=== PATIENT | male | born 2000 | race Caucasian/White ===

== ENCOUNTER 2020-03-30 21:54 | Emergency (ER) | payer BC, OTHER ==
[2020-03-30] MEDS ORDERED: Diphtheria,Pertussis(Acell),Tetanus Vaccine 0.5 ML SDV IM ONE (22:05)
[2020-03-30] MEDS ORDERED: Lidocaine 1% 30 ML SDV INJECT ONE (22:06)
[2020-03-30] MEDS ORDERED: Bacitracin Oint 1 GM U/D Packet TOP ONE (22:07)
[2020-03-30] MEDS ORDERED: Cephalexin 500 MG Cap PO ONE (22:30)
--- NOTE | 2020-03-30 23:01 | EDM.PDOC ---
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 Unsure last tetnus. - Related Data Allergies Allergy/AdvReac Type Severity Reaction Status Date / Time No Known Allergies Allergy Verified 03/30/20 22:12 Home Meds: Home Meds . [No Known Home Meds] 03/30/20 [History] Past Medical History - Past Health History Medical/Surgical History: Denies Medical/Surgical History Social & Family History - Tobacco Use Smoking Status *Q: Never Smoker - Alcohol Use Days Per Week of Alcohol Use: 3 Number of Drinks Per Day: 3 Total Drinks Per Week: 9 - Recreational Drug Use Recreational Drug Use: No Review of Systems - Review of Systems Review Of Systems: Comprehensive ROS is negative, except as noted in HPI. ED EXAM, GENERAL - Physical Exam Exam: See Below Exam Limited By: No Limitations General Appearance: Alert, Anxious Eye Exam: Bilateral Eye: EOMI Ears: Normal External Exam, Normal Canal Nose: Normal Inspection Throat/Mouth: Normal Inspection Head: Atraumatic, Normocephalic Neck: Normal Inspection Respiratory/Chest: No Respiratory Distress Cardiovascular: Normal Peripheral Pulses Extremities: Other ( swelling left distal index nail bed intact no subungal hematoma). No: Normal Inspection, Normal Range of Motion Neurological: Alert, Oriented, Normal Cognition, Normal Gait Psychiatric: Normal Affect, Normal Mood Skin Exam: Warm, Ecchymosis, Wound/Incision (distal left index palm 1cm ) ED TRAUMA EXTREMITY PROCEDURES - Laceration/Wound Repair Left Distal Digit - 2nd (Index) Appearance: Superficial Distal NVT: Neuro & Vascular Intact Anesthetic Type: Local Local Anesthesia - Lidocaine (Xylocaine): 1% Plain Local Anesthetic Volume: 2cc Skin Prep: Chlorhexidine (Hibiciens), Saline Closed With: Sutures Suture Size: 4-0 # of Sutures: 2 Sterile Dressing Applied: Other (splint lieft index) Tetanus Status Addressed: Yes Complications: No Course - Vital Signs Last Recorded V/S: Last Vital Signs Temp 95.5 F L 03/30/20 22:06 Pulse 95 03/30/20 22:06 Resp 16 03/30/20 22:06 BP 163/93 H 03/30/20 22:06 Pulse Ox 98 03/30/20 22:06 - Orders/Labs/Meds Orders: Active Orders 24 hr Category Date Time Status Vaccines to be Administered [RC] PER UNIT ROUTINE Care 03/30/20 22:06 Active Fingers Multiple Lt [CR] Urgent Exams 03/30/20 22:07 Taken Meds: Medications Discontinued Medications Generic Name Dose Route Start Last Admin Trade Name Mireille PRN Reason Stop Dose Admin Bacitracin 1 dose 03/30/20 22:07 03/30/20 22:21 Bacitracin Oint 1 Gm TOP 03/30/20 22:08 1 dose ONETIME ONE Administration Cephalexin 500 mg 03/30/20 22:30 03/30/20 22:35 Keflex PO 03/30/20 22:31 500 mg ONETIME ONE Administration Diphtheria/Tetanus/Acell Pertussis 0.5 ml 03/30/20 22:05 03/30/20 22:21 Adacel IM 03/30/20 22:06 0.5 ml .ONCE ONE Administration Lidocaine HCl 30 ml 03/30/20 22:06 03/30/20 22:21 Xylocaine-Mpf 1% INJECT 03/30/20 22:07 30 ml ONETIME ONE Administration - Radiology Interpretation Free Text/Narrative:: Left index distal tuft fx. see report. 3rd finger negative Departure - Departure Time of Disposition: 22:56 Disposition: Home, Self-Care 01 Condition: Good Clinical Impression: Crush injury, Crushing injury of finger of left hand, Laceration, Open fracture of tuft of distal phalanx of finger - Discharge Information *PRESCRIPTION DRUG MONITORING PROGRAM REVIEWED*: No *COPY OF PRESCRIPTION DRUG MONITORING REPORT IN PATIENT KENN: No Instructions: Laceration Care, Adult, Metacarpal Fracture, [id number], Crush Injury of the Hand, [id number] Referrals: PCP,None [Primary Care Provider] - Forms: ED Department Discharge Additional Instructions: sutures out 10-14 days ice elevate fingers wash with saop and water at least twice daily keep wound dressed while at work, change bandage frequently especially if dirty or moist splint keflex 500mg one three times daily for 10 days follow up clinic next week for recheck, sooner if redness swelling or drainage. Sepsis Event Note - Evaluation Sepsis Screening Result: No Definite Risk - Focused Exam Vital Signs: Vital Signs Temp Pulse Resp BP Pulse Ox 03/30/20 22:06 95.5 F L 95 16 163/93 H 98 Date Exam was Performed: 03/31/20 Time Exam was Performed: 06:31 - My Orders Last 24 Hours: My Active Orders 03/30/20 22:06 Vaccines to be Administered [RC] PER UNIT ROUTINE 03/30/20 22:07 Fingers Multiple Lt [CR] Urgent - Assessment/Plan Last 24 Hours: My Active Orders 03/30/20 22:06 Vaccines to be Administered [RC] PER UNIT ROUTINE 03/30/20 22:07 Fingers Multiple Lt [CR] Urgent
== END 2020-03-30 23:09 | disposition home or self-care (01) ==
LOC: DL.ED 21:54
DX: S67.191A Crushing injury of left index finger, initial encounter (principal); S62.631B Displaced fracture of distal phalanx of left index finger, initial encounter for open fracture; Z23 Encounter for immunization; W23.0XXA Caught, crushed, jammed, or pinched between moving objects, initial encounter
CPT/HCPCS: 12001; 73140; 90471; 90715; 99283; A9270; J2001